=== PATIENT | female | born 1975 | race Caucasian/White ===

== ENCOUNTER 2017-04-17 19:01 | Inpatient (IN) | payer OTHER ==
[~2017-04-17] VITALS: Ht 160 cm; Wt 163.3 kg
[~2017-04-17 19:01] MED LIST: ceFAZolin 1,000 MG VIAL IVP ONE
[2017-04-17 19:11] VITALS: BP 127/61
--- NOTE | 2017-04-17 19:19 | NUR ---
Patient ambulated to bed 11. RN evaluating patient at bedside.
--- NOTE | 2017-04-17 19:20 | NUR ---
PATIENT PRESENTS TO ED WITH lower abd pain WITH CONTRACTIONS, LOWER BACK PAIN since friday, s/p fall 2 weeks ago, seen by pmd , 8 weeeks, LMP 09.05. NO VAG INAL BLEEDING TODAY , WITH SPOTTING YESTERDAY PT DENIES N/V/D; SKIN IS PINK/WARM/DRY; AAOX4 WITH EVEN AND STEADY GAIT; LUNGS CLEAR BL; HR EVEN AND REGULAR; PT DENIES ANY FEVER, CP, SOB, OR COUGH AT THIS TIME; PATIENT STATES PAIN OF 8/10 AT THIS TIME; VSS; PATIENT POSITIONED FOR COMFORT; HOB ELEVATED; BEDRAILS UP X2; BED DOWN. ER MD MADE AWARE OF PT STATUS.
[2017-04-17 19:58] LABS: BASOPHILS % (AUTO) 0.5 % (0.0-2.0); EOSINOPHILS # (AUTO) 0.1 K/uL (0-0.4); HEMATOCRIT 33.6 % (36-48); HEMOGLOBIN 10.5 g/dL (12.0-16.0); LYMPHOCYTES # (AUTO) 2.1 K/uL (2.5-16.5); LYMPHOCYTES % (AUTO) 22.6 % (20.5-51.1); MEAN CORPUSCULAR HEMOGLOBIN 23 pg (27-31); MEAN CORPUSCULAR HGB CONC 31 g/dL (33-37); MEAN CORPUSCULAR VOLUME 73 fL (80-94); MONOCYTES # (AUTO) 0.6 K/uL (0.8-1.0); MONOCYTES % (AUTO) 6.7 % (1.7-9.3); NEUTROPHILS # (AUTO) 6.4 K/uL (1.8-7.7); NEUTROPHILS % (AUTO) 69.2 % (42.2-75.2); PLATELET COUNT (AUTO) 321 K/uL (140-450); RED CELL DISTRIBUTION WIDTH 16.5 % (11.6-13.7); WHITE BLOOD COUNT (AUTO) 9.2 K/uL (4.8-10.8)
[2017-04-17 20:01] LABS: BILIRUBIN,URINE NEGATIVE (NEGATIVE); BLOOD, URINE NEGATIVE (NEGATIVE); COLOR,URINE YELLOW (YELLOW); LEUKOCYTE ESTERASE ,URINE NEGATIVE (NEGATIVE); NITRITE, URINE NEGATIVE (NEGATIVE); UGLUCOSE NEGATIVE (NEGATIVE)
[2017-04-17 20:04] LABS: APPEARANCE,URINE SLIGHTLY HAZY (CLEAR)
--- NOTE | 2017-04-17 20:39 | NUR ---
Dr. Garcia re-evaluating patient at bedside.
--- NOTE | 2017-04-17 20:48 | NUR ---
Patient discharged from ER and taken to [facility] & [facility]. Pt is 40 weeks . ER discharge instructions given to pt. All appropriate questions answered.
[2017-04-17] MEDS ORDERED: LACTATED RINGERS 1,000 ML IV SCH (21:43)
[2017-04-17] MEDS ORDERED: OXYTOCIN 10 UNITS/ML VIAL ONE ×2 (22:21→22:30)
[2017-04-17] MEDS ORDERED: METHYLERGONOVINE 0.2 MG/ML AMP ONE (22:21)
[2017-04-17] MEDS ORDERED: ceFAZolin 1,000 MG VIAL ONE ×2 (22:22→22:30)
[2017-04-17] MEDS ORDERED: CITRIC ACID/SODIUM CITRATE 30 ML UDC ONE (22:23)
[2017-04-17 22:27] LABS: ANION GAP 11.6 (8-16); CARBON DIOXIDE 25.4 mmol/L (21-32); CREATININE 0.6 mg/dL (0.6-1.3)
[2017-04-17] MEDS ORDERED: MORPHINE SULFATE 4 MG/ML SYR ONE (22:30)
[2017-04-17] MEDS ORDERED: ePHEDrine 50 MG/ML VIAL ONE (22:30)
[2017-04-17] MEDS ORDERED: ONDANSETRON 4 MG/2 ML VIAL ONE (22:30)
[2017-04-17] MEDS ORDERED: BUPIVACAINE-MPF 0.75% 10 ML VIAL INJ ONE (22:30)
[2017-04-17 22:32] LABS: ALBUMIN 2.1 g/dL (3.4-5.0); TOTAL BILIRUBIN 0.1 mg/dL (0.0-1.0)
[2017-04-17 22:37] LABS: BARBITURATE, URINE NEG. ng/ml (NEG <=200); BENZODIAZEPINE, URINE NEG. ng/mL (NEG <=200); CANNABINOID, URINE NEG. ng/mL (NEG <=50); COCAINE, URINE NEG. ng/mL (NEG <=300); OPIATE, URINE NEG. ng/mL (NEG <=2000); PHENCYCLIDINE SCREEN,URINE NEG. ng/mL (NEG <=25)
[2017-04-17 22:40] VITALS: BP 134/66
[2017-04-17] MEDS ORDERED: INFLUENZA VIRUS VACCINE QUAD 0.5 ML SYR IMVAC SCH (22:45)
[2017-04-17] MEDS ORDERED: MIDAZOLAM 2 MG/2 ML VIAL ONE (22:47)
[2017-04-17] MEDS ORDERED: KETAMINE 500 MG/5 ML VIAL ONE (22:47)
[2017-04-17] MEDS ORDERED: fentaNYL 0.05 MG/ML VIAL ONE (22:47)
[2017-04-17] MEDS ORDERED: MORPHINE PRES FREE 10 MG/10 ML AMP IV ONE (22:48)
[2017-04-17] MEDS ORDERED: METHYLERGONOVINE 0.2 MG/ML AMP IM PRN (23:10)
[2017-04-17] MEDS ORDERED: oxyCODONE/APAP 5/325 MG 1 TAB TAB PO PRN (23:10)
[2017-04-17] MEDS ORDERED: TEMAZEPAM 15 MG CAP PO PRN (23:10)
[2017-04-17] MEDS ORDERED: MEASLES, MUMPS, AND RUBELLA 1 VIAL SQVAC PRN (23:10)
[2017-04-17] MEDS ORDERED: IBUPROFEN 800 MG TAB PO PRN (23:10)
[2017-04-17] MEDS ORDERED: TRIMETHOBENZAMIDE 200 MG/2 ML SYR IM PRN (23:10)
[2017-04-17] MEDS ORDERED: HYDROcodone/APAP 5/325 MG 1 TAB TAB PO PRN (23:10)
[2017-04-17] MEDS ORDERED: SIMETHICONE 80 MG TAB.CHEW PO PRN (23:10)
[2017-04-17] MEDS ORDERED: diphenhydrAMINE 50 MG/ML VIAL IVP PRN (23:50)
[2017-04-17] MEDS ORDERED: KETOROLAC 30 MG/ML VIAL IVP PRN (23:50)
[2017-04-17] MEDS ORDERED: ONDANSETRON 4 MG/2 ML VIAL IVP PRN (23:50)
--- NOTE | 2017-04-18 00:14 | NUR ---
attended with Dr. Kimball and Dr. Ortiz from 2229 to [id number], with no complication
[2017-04-18 05:48] LABS: BASOPHILS % (AUTO) 0.4 % (0.0-2.0); EOSINOPHILS # (AUTO) 0.1 K/uL (0-0.4); EOSINOPHILS % (AUTO) 0.5 % (0.0-4.0); HEMATOCRIT 31.8 % (36-48); HEMOGLOBIN 10.1 g/dL (12.0-16.0); LYMPHOCYTES # (AUTO) 1.2 K/uL (2.5-16.5); MEAN CORPUSCULAR HEMOGLOBIN 23 pg (27-31); MEAN CORPUSCULAR HGB CONC 32 g/dL (33-37); MEAN CORPUSCULAR VOLUME 73 fL (80-94); MONOCYTES # (AUTO) 0.6 K/uL (0.8-1.0); MONOCYTES % (AUTO) 5.2 % (1.7-9.3); NEUTROPHILS # (AUTO) 9.4 K/uL (1.8-7.7); NEUTROPHILS % (AUTO) 82.9 % (42.2-75.2); PLATELET COUNT (AUTO) 270 K/uL (140-450); RED BLOOD CELL COUNT(AUTO) 4.34 MIL/uL (4.20-5.40); WHITE BLOOD COUNT (AUTO) 11.3 K/uL (4.8-10.8)
[2017-04-18] MEDS ORDERED: OXYTOCIN 10 UNITS/ML VIAL ONE (07:04)
[2017-04-18] MEDS: OXYTOCIN 20 UNITS in LACTATED RINGERS 1,000 ML IV SCH ×2 (07:04→15:50)
--- NOTE | 2017-04-18 10:25 | NUR ---
PATIENT HAS BEEN SCREENED AND CATEGORIZED LOW NUTRITION RISK. PATIENT WILL BE SEEN WITHIN 7 DAYS OF ADMISSION. 04/24/[address]
[2017-04-18 14:58] LABS: RAPID PLASMA REAGIN NON-REACTIVE (Non Reactiv)
[2017-04-18] MEDS: DOCUSATE SOD/SENNA 50/8.6 MG 1 TAB PO SCH (21:33)
[2017-04-19] MEDS: DOCUSATE SOD/SENNA 50/8.6 MG 1 TAB PO SCH (20:42)
[2017-04-20] MEDS ORDERED: IBUP-2217 PO (11:06)
== END 2017-04-20 13:50 | disposition home or self-care (01) | DRG 540 ==
LOC: MED 19:01 → MLD 20:55 → OBSVTOIN 20:55 → MFCC 04-18 01:20
PROVIDERS: ADMIT Obstetrics & Gynecology; ATTEND Obstetrics & Gynecology
PROC: 10D00Z1 Extraction of Products of Conception, Low, Open Approach (ICD-10-PCS; principal; 2017-04-17 22:30)
DX: O34.211 Maternal care for low transverse scar from previous cesarean delivery (principal); Z68.44 Body mass index [BMI] 60.0-69.9, adult; Z37.0 Single live birth; O99.214 Obesity complicating childbirth; E66.01 Morbid (severe) obesity due to excess calories; Z3A.39 39 weeks gestation of pregnancy; Z28.21 Immunization not carried out because of patient refusal
CPT/HCPCS: 36415; 51702; 76805; 80053; 80305; 81003; 81025; 84702; 85025; 86592; 86762; 86886; 86900; 86901; 87340; 87653-90; 99285; J0690; J1200; J2210; J2250; J2270; J2405; J2590; J3010; J3490; J7060; J7120; Q0092

== ENCOUNTER 2018-06-24 11:56 | Emergency (ER) | payer OTHER ==
[~2018-06-24] VITALS: Ht 162.6 cm; Wt 179.4 kg
[2018-06-24 12:01] VITALS: BP 110/68
--- NOTE | 2018-06-24 12:10 | NUR ---
43 YO F BIB SELF W/ C/O 10 MIDDLE BACK PAIN X 1 WEEK. PT WAS SEEN AT ER AND GIVEN NORCO AND A MUSCLE RELAXER, BUT STATES THAT THEY HAVE NOT BEEN HELPING. PT DENIES INJURY OR TRAUMA. AMBULATORY W/ STEADY GAIT. PT IS AOX4 TO PERSON, PLACE, TIME, AND SITUATION. RR ARE EVEN AND UNLABORED. NAD. VSS. AWAITING ER MD CARNEY. WILL CONTINUE TO MONITOR.
--- NOTE | 2018-06-24 12:20 | NUR ---
er md hart by bedside examining pt
[2018-06-24 13:18] LABS: APPEARANCE,URINE CLEAR (CLEAR); BILIRUBIN,URINE NEGATIVE (NEGATIVE); BLOOD, URINE NEGATIVE (NEGATIVE); COLOR,URINE YELLOW (YELLOW); LEUKOCYTE ESTERASE ,URINE NEGATIVE (NEGATIVE); NITRITE, URINE NEGATIVE (NEGATIVE); UGLUCOSE NEGATIVE (NEGATIVE)
--- NOTE | 2018-06-24 14:13 | NUR ---
Patient discharged with v/s stable. Written and verbal after care instructions given and explained. Patient alert, oriented and verbalized understanding of instructions. Ambulatory with steady gait. All questions addressed prior to discharge. ID band removed. Patient advised to follow up with PMD. Rx of Valium given. Patient educated on indication of medication including possible reaction and side effects. Opportunity to ask questions provided and answered.
[2018-06-24 14:15] VITALS: BP 113/72
== END 2018-06-24 14:13 | disposition home or self-care (01) ==
LOC: MED 11:56
DX: M54.5 Low back pain (principal)
CPT/HCPCS: 72072; 81003; 99284